=== PATIENT | male | born 1975 | race Two or more races ===

== ENCOUNTER 2020-05-31 14:29 | Outpatient (CLI) | payer OTHER ==
[~2020-05-31] VITALS: Ht 182.9 cm; Wt 96.6 kg
--- NOTE | 2020-05-31 16:15 | Consultation ---
DATE OF CONSULTATION: 05/31/2020 CONSULTING PHYSICIAN: Morgan Garza MD CHIEF COMPLAINT: Chronic GERD. PAST MEDICAL HISTORY: H. pylori infection, status post treatment. PAST SURGICAL HISTORY: Appendectomy, anal fistula. MEDICATIONS: [place]-3. FAMILY HISTORY: No family history of GI malignancies. SOCIAL HISTORY: Patient is a social drinker. Denies any tobacco or IV drug abuse. ALLERGIES: No known drug allergies. REVIEW OF SYSTEMS: Positive for GERD. Last endoscopy in 2018. He had H. pylori positive gastritis, status post treatment. Negative H. pylori stool tests recently. PHYSICAL EXAMINATION: VITAL SIGNS: Temperature 97.7, pulse is 68, blood pressure is 132/87. HEENT: Normocephalic and atraumatic. Sclerae are anicteric. NECK: Supple. No evidence of obvious lymphadenopathy. CARDIOVASCULAR: Regular rate and rhythm. Plus S1-S2. LUNGS: Clear to auscultation bilaterally. ABDOMEN: Positive bowel sounds. Soft and nontender. No rebound. No guarding. No peritoneal sign. EXTREMITIES: No cyanosis, no clubbing, no edema. ASSESSMENT AND PLAN: This is a 45-year-old male with chronic GERD symptoms. Apparently was taking PPI [id number] without any significant improvement. Patient is requesting to have an endoscopy. He is worried about gastric cancer. We will try to get and schedule for endoscopy before treating with PPI. Morgan Garza M.D. DR: WARREN JOB#: [id number] CC:
[2020-06-01] MEDS ORDERED: OMEGA 3 1,0001 EACH PO (07:28)
[2020-06-01 07:31] VITALS: BP 132/87
== END 2020-05-31 16:29 | disposition home or self-care (01) ==
LOC: PAN 14:29
DX: K21.9 Gastro-esophageal reflux disease without esophagitis (principal); Z90.89 Acquired absence of other organs
CPT/HCPCS: G0463

== ENCOUNTER 2020-07-22 14:33 | Outpatient (CLI) | payer OTHER ==
[~2020-07-22 14:33] MED LIST: OMEGA 3 1,0001 EACH PO
== END 2020-07-22 16:33 | disposition home or self-care (01) ==
LOC: PAN 14:33
DX: R10.9 Unspecified abdominal pain (principal)
CPT/HCPCS: 99212